=== PATIENT | female | born 1985 | race Caucasian/White ===

== ENCOUNTER 2022-08-16 18:24 | Emergency (ER) | payer BC, SELFPAY ==
[2022-08-16 18:37] VITALS: BP 122/78; PULSE 97; RESP 16; TEMP 36.4; O2SAT 100
--- NOTE | 2022-08-16 18:57 | ED.URI ---
HPI - URI/Sore Throat General Chief Complaint: Upper Respiratory Infection Stated Complaint: sore throat Time Seen by Provider: 08/16/22 18:38 Source: patient Mode of arrival: ambulatory Limitations: no limitations History of Present Illness HPI Narrative: Patient presents today stating, ?I have strep throat. ? Patient reports sore throat that started today. Denies any additional symptoms except stating that she has chronic nasal congestion due to allergies. States she did a home COVID test that was negative. Currently rates her pain 5/10 and has been taking Tylenol and ibuprofen with relief of pain. Pain increases with swallowing. Related Data Home Medications Medication Instructions Recorded Confirmed albuterol sulfate 90 mcg/actuation 1 inh inhalation DIRECTED 08/16/22 08/16/22 aerosol inhaler Allergies Allergy/AdvReac Type Severity Reaction Status Date / Time No Known Allergies Allergy Verified 08/16/22 18:58 Review of Systems Review of Systems: CONSTITUTIONAL: Denies body aches, fever, chills, or sweats. EYES: Denies visual changes, redness, or discharge. ENT: Denies rhinorrhea, congestion, or otalgia.+ sore throat CARDIOVASCULAR: Denies chest pain, palpitations, or edema. RESPIRATORY: Denies cough or dyspnea. GASTROINTESTINAL: Denies abdominal pain, nausea, vomiting, or diarrhea. GENITOURINARY: Denies dysuria or hematuria. SKIN: Denies rash, itching, or wounds. MUSCULOSKELETAL: Denies back pain, joint pain, or myalgia. NEUROLOGIC: Denies headache, numbness, tingling, or weakness. PSYCH: Denies depression or anxiety. PMFSH Comments At time of signature, I have reviewed and agree with nursing past medical, surgical, social and family history unless otherwise noted. Please see nursing chart for further information. There is no relevant family history pertinent to the presenting complaint Exam Narrative: GENERAL: Well-appearing, well-nourished, and in no acute distress. HEAD: Normocephalic, atraumatic. EYES: EOMI. No redness or drainage. Conjunctivae normal. ENT: Mucous membranes pink and moist. Nares clear. No rhinorrhea. TMs normal bilaterally. Throat erythematous with mild edema. Small amount of white exudate on the right tonsil. Tonsils 2+.. Uvula midline. NECK: Normal AROM. Supple. No lymphadenopathy. CHEST: No respiratory distress. Clear to auscultation. HEART: Regular rate and rhythm. No murmur appreciated. EXTREMITIES: Normal range of motion. No edema. SKIN: Warm, dry, no rash. Capillary refill normal. Normal skin turgor. NEURO: No focal deficits. Alert and oriented x3. Gait steady. PSYCH: Normal affect. No signs of depression or anxiety. Course Course Level of Care: Express Care Visit Vital Signs Vital signs: Vital Signs Temperature 97.6 F 08/16/22 18:37 Pulse Rate 97 08/16/22 18:37 Respiratory Rate 16 08/16/22 18:37 Blood Pressure 122/78 08/16/22 18:37 Pulse Oximetry 100 08/16/22 18:37 Temperature 97.6 F 08/16/22 18:37 Pulse Rate 97 08/16/22 18:37 Respiratory Rate 16 08/16/22 18:37 Blood Pressure 122/78 08/16/22 18:37 Pulse Oximetry 100 08/16/22 18:37 Reviewed. Pt has been instructed to follow up with her PCP regarding her elevated blood pressure today. MDM - URI/Sore Throat MDM Narrative Medical decision making narrative: Rapid strep screen is negative. Culture pending. No prescription indicated at this time. Discussed with patient that her symptoms are likely viral given at rapid strep is negative. Discussed using [id number] medications for her symptoms. Patient unhappy that she will not be receiving antibiotics. Patient states, ?So I'm paying 500 dollars to take [id number] medicine? Isn't there something you can give me to help with the pain? Discussed with patient that prescription pain medication is not prescribed for sore throat due to viral illnesses, as [id number] medication is typically lujan
== END 2022-08-16 18:55 | disposition home or self-care (01) ==
PROVIDERS: Emergency Provider Nurse Practitioner
DX: J02.0 Streptococcal pharyngitis (principal); J45.909 Unspecified asthma, uncomplicated
CPT/HCPCS: 87081; 87147; 87880; 99213; G0463

== ENCOUNTER 2022-09-08 12:04 | Emergency (ER) | payer BC, SELFPAY ==
[2022-09-08 12:13] VITALS: BP 116/95; PULSE 95; RESP 14; TEMP 36.1; O2SAT 100
--- NOTE | 2022-09-08 12:24 | ED.URI ---
HPI - URI/Sore Throat General Chief Complaint: Upper Respiratory Infection Stated Complaint: strep Source: patient and RN notes reviewed History of Present Illness HPI Narrative: 36-year-old female presents to urgent care with complaints of a sore throat since Thursday. Patient states she was diagnosed with strep throat at the end of July and took the full 10 days of PCN V she was presecribed. Pt states her current sore throat started this past Thursday. Reports a low grade fever last night. denies any vomiting, abdominal pain, headache or ear pain. patient did take an antipyretic last night with good relief. Some parts of this dictation were generated by voice recognition software and may contain typographical and/or grammatical inaccuracies. Related Data Home Medications Medication Instructions Recorded Confirmed albuterol sulfate 90 mcg/actuation 1 inh inhalation DIRECTED 08/16/22 09/08/22 aerosol inhaler Allergies Allergy/AdvReac Type Severity Reaction Status Date / Time codeine Allergy Wheezing Verified 09/08/22 12:17 Sulfa (Sulfonamide Allergy Rash Verified 09/08/22 12:17 Antibiotics) Review of Systems Review of Systems: CONSTITUTIONAL: Denies fever, chills, or sweats. EYES: Denies visual changes, redness, or discharge. ENT: sore throat CARDIOVASCULAR: Denies chest pain, palpitations, or edema. RESPIRATORY: Denies cough or dyspnea. GASTROINTESTINAL: Denies abdominal pain, nausea, vomiting, or diarrhea. GENITOURINARY: Denies dysuria or hematuria. SKIN: Denies rash or itching. MUSCULOSKELETAL: Denies back pain, joint pain, or myalgia. NEUROLOGIC: Denies headache, numbness, or weakness. PMFSH Comments At the time of my signature, I reviewed and agree with the nursing past medical, surgical, social, and family history. There is no relevant family history pertinent to the patient complaint. Exam Narrative: GENERAL: This is a well-nourished, well-developed patient, in no apparent distress. HEAD: normocephalic, atraumatic. EYES: PERRL. Sclera clear/white. Vision is grossly intact. EARS: External ears normal, auditory canals clear and without drainage, TMs normal without perforation. Hearing grossly intact. NOSE: External nose normal with no obvious nasal discharge, nares without redness, no rhinorrhea. THROAT: Mucous membranes moist, posterior pharynx erythemic with no exudate. NECK: Neck supple, non-tender without lymphadenopathy, masses or thyromegaly. CARDIOVASCULAR: Regular rate and rhythm without murmurs, gallops, or rubs. RESPIRATORY: Clear to auscultation. Breath sounds equal bilaterally. No wheezes, rales, or rhonchi. GASTROINTESTINAL: Abdomen soft, non-tender, nondistended. Bowel sounds are active. No hepato-splenomegaly, or palpable masses. No guarding. SKIN: warm, intact with no suspicious lesions or rash, good texture and turgor. NEURO: awake, alert, and oriented to person, place and time. There were no obvious focal neurologic abnormalities. Course Course Level of Care: Express Care Visit Vital Signs Vital signs: Vital Signs Temperature 97.0 F L 09/08/22 12:13 Pulse Rate 95 09/08/22 12:13 Respiratory Rate 14 09/08/22 12:13 Blood Pressure 116/95 H 09/08/22 12:13 Pulse Oximetry 100 09/08/22 12:13 Oxygen Delivery Room Air 09/08/22 12:13 Temperature 97.0 F L 09/08/22 12:13 Pulse Rate 95 09/08/22 12:13 Respiratory Rate 14 09/08/22 12:13 Blood Pressure 116/95 H 09/08/22 12:13 Pulse Oximetry 100 09/08/22 12:13 Oxygen Delivery Room Air 09/08/22 12:13 reviewed MDM - URI/Sore Throat MDM Narrative Medical decision making narrative: After 24 hours on antibiotics throw tooth brush away and start using a new one. Do not share drinks. Take Motrin alternating with Tylenol for pain and fever alternating every 4 hours. Increase fluids, avoid caffeine. Follow up with Primary provider if not getting better this week Differential Diag
== END 2022-09-08 12:38 | disposition home or self-care (01) ==
PROVIDERS: Emergency Provider Nurse Practitioner Family
DX: J02.0 Streptococcal pharyngitis (principal); J45.909 Unspecified asthma, uncomplicated
CPT/HCPCS: 87880; 99213; G0463

== ENCOUNTER 2024-06-28 10:28 | Emergency (ER) | payer OTHER, SELFPAY ==
[2024-06-28 10:47] VITALS: BP 120/83; PULSE 88; RESP 16; TEMP 36.4; O2SAT 99
--- NOTE | 2024-06-28 10:50 | ED.SKABFB ---
HPI - Skin/Abscess/Foreign Bdy General Chief complaint: Skin/Abscess/Foreign Body Stated complaint: Rash on thigh Time Seen by Provider: 06/28/24 10:53 Source: patient, RN notes reviewed and old records reviewed Mode of arrival: ambulatory Limitations: no limitations History of Present Illness HPI narrative: 38 year old female who presents to [facility] care with complaints of itchy red raised scattered rash to the top of right upper thigh region and small area of similar rash to the inner mid aspect of left thigh first noticed on the of this month. patient reports that rash is itchy she has taken Benadryl orally and used her normal pablo butter on her skin. Patient reports no known new foods, medications, laundry or personal care products. Rash noted to tiera, patient denies any fevers, no difficulty with breathing or swallowing voiced. MD complaint: rash Onset (ago): day(s) (5) Location: LLE (small area left mid thigh) and RLE (upper thigh anterior) Severity scale (1-10): 3 Treatments prior to arrival: Benadryl and other (cocco butter) Related Data Home Medications ?Medication ?Instructions ?Recorded ?Confirmed ?Last Taken ?Type albuterol sulfate 90 mcg/actuation 1 inh inhalation DIRECTED 08/16/22 09/08/22 Unknown History aerosol inhaler Allergies Allergy/AdvReac Type Severity Reaction Status Date / Time codeine Allergy Wheezing Verified 09/08/22 12:17 Sulfa (Sulfonamide Allergy Rash Verified 09/08/22 12:17 Antibiotics) Review of Systems Review of Systems: CONSTITUTIONAL: Denies fever, chills, or sweats. CARDIOVASCULAR: Denies chest pain, palpitations, or edema. RESPIRATORY: Denies cough or dyspnea. SKIN: Reports red minimal raised rash to right upper thigh which is itchy and small area of similar rash to left mid inner thigh, reports itching no drainage or pustule or vesicles noted MUSCULOSKELETAL: Denies joint pain or myalgia. NEUROLOGIC: Denies headache, numbness, or weakness. All systems reviewed & are unremarkable except as noted in HPI and below PMFSH Past Medical History Medical History Ganglion cyst of dorsum of right wrist Asthma Comments At time of signature, agree with nursing past medical, surgical, social and family history. There is no relevant family history pertinent to the presenting complaint Exam Narrative: GENERAL: Well-appearing, well-nourished, and in no acute distress. HEAD: Normocephalic, atraumatic. EYES: PERRLA, conjunctivae clear, and EOMI. ENT: Mucous membranes moist. Oropharynx without edema, erythema or lesions. NECK: Supple. No lymphadenopathy CHEST: Clear to auscultation. No respiratory distress.SAO2 99% on room air HEART: Regular rate and rhythm. SKIN: Warm, dry.? Patches of minimal raised erythema to the anterior aspect of her right thigh and to small area to left medial thigh, is itchy no vesicles or pustules NEURO:? Alert and oriented x3. PSYCH: Normal mood and affect Course Course Emergency Course: Patient is aware of diagnosis, understands and agrees to treatment plan.? Anticipatory guidance given.? Patient agrees to follow-up as directed and is aware of reasons to seek care at the emergency department. Portions of this record may have been created with voice recognition software Level of Care: Express Care Visit Vital Signs Vital signs: Vital Signs Temperature 36.4 C 06/28/24 10:47 Pulse Rate 88 06/28/24 10:47 Respiratory Rate 16 06/28/24 10:47 Blood Pressure 120/83 06/28/24 10:47 Pulse Oximetry 99 06/28/24 10:47 Temperature 36.4 C 06/28/24 10:47 Pulse Rate 88 06/28/24 10:47 Respiratory Rate 16 06/28/24 10:47 Blood Pressure 120/83 06/28/24 10:47 Pulse Oximetry 99 06/28/24 10:47 Reviewed MDM - Skin/Abscess/Foreign Bdy MDM Narrative Medical decision making narrative: Does not appear at this time to be erythema multiforme, bullous, SJS, TEN; no evidence at this time to suggest RMSF, endocarditis or Lyme disease; patient looks well, nontoxic and is tolerating oral intake; no neurologic signs or symptoms; no headache, photophobia or neck pain; afebrile; appropriate for initial outpatient treatment; discussed the importance of follow-up, patient agrees; question, viral exanthema, contact dermatitis, allergic dermatitis, eczema, urticaria, [ xx ]. No soft palate or uvula edema, no tongue, lip edema or other mucosal involvement, no respiratory compromise, no stridor, no wheezing, no wheezing, no history of syncope, no hypotension, no nausea, vomiting, or diarrhea.? Instructed patient to go to nearest ER immediately for any worsening symptoms including but not limited to: fever, spreading rash, pain, sore throat, headache, dizziness, chest pain, trouble breathing, or any symptoms concerning to the patient. Differential Diagnosis Differential diagnosis: Likely urticaria, allergic reaction to drug, cellulitis, eczema and contact dermatitis Medical Records Attestation: I reviewed the patient's medical records. Critical Care Time Critical Care Time Critical Care Time: No Discharge Plan Discharge Clinical Impression: Contact dermatitis Qualifiers: Contact dermatitis type: unspecified Contact dermatitis trigger: unspecified trigger Qualified Code(s): L25.9 - Unspecified contact dermatitis, unspecified cause Patient Disposition: Home, Self-Care Condition: Stable Instructions: Contact Dermatitis (ED) Additional Instructions: apply triamcinolone ointment twice daily to rash never apply this medicine to the face watch for any infection--redness, swelling, drainage Tylenol or ibuprofen for any fever pain Zyrtec daily for 10 days Pepcid 20 mg daily for 10 days steroid taper take as prescribed follow up with PCP in 7-10 days for a wound check recheck if develop fever, chills, increasing symptom Go to the ER if your symptoms become worse of if ANY new symptoms develop If your symptoms persist, change or worsen significantly before you can contact your personal physician then please, without delay, go to the emergency department for further evaluation. Follow-up with PCP in 7-10 days or sooner if needed Follow up with PCP soon in regards to your blood pressure which is elevated above threshold for referral. Blood pressure above 120/80 may indicate pre-hypertension. minimal diastolic elevation at 120/83 Patient Language: Burkinan Prescriptions: New prednisone 10 mg tablet 10 mg PO DIRECTED Qty: 21 0RF Rx Instructions: see taper instructions 6 tabs day 1, 5 tabs day 2, 4 tabs day 3, 3 tabs day 4, 2 tabs day 5, 1 tab day 6 take with food triamcinolone acetonide 0.1 % ointment 1 applic topical BID Qty: 80 0RF Rx Instructions: apply to rash twice daily never apply this medication on the face famotidine [Pepcid] 20 mg tablet 20 mg PO DAILY Qty: 10 0RF No Action amoxicillin-pot clavulanate 875-125 mg tablet 1 tablet PO Q12H 10 Days Qty: 20 0RF albuterol sulfate 90 mcg/actuation HFA aerosol inhaler 1 inh INHALATION DIRECTED Follow-up/Referrals: UNKNOWN,DOCTOR [Primary Care Provider] - Time of Disposition: 11:15 Quality Sawyer Coma Scale Eyes: Open Verbal: Oriented and Alert Motor: Follows Commands Sawyer Coma Total Score: 15
== END 2024-06-28 11:20 | disposition home or self-care (01) ==
PROVIDERS: Emergency Provider Registered Nurse
DX: L25.9 Unspecified contact dermatitis, unspecified cause (principal); J45.909 Unspecified asthma, uncomplicated
CPT/HCPCS: 99213; G0463